=== PATIENT | male | born 1985 | race Caucasian/White ===

== ENCOUNTER 2019-05-04 20:06 | Emergency (ER) | payer OTHER ==
[2019-05-04] MEDS ORDERED: Ibuprofen 600 MG Tab PO ONE (20:13)
--- NOTE | 2019-05-04 20:18 | EDM.PDOC ---
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 male came to the ED after an equipment fell onto his right cheek. Pt was concerned hi right jaw is broken. He noticed a wound lesion at his right jaw as well. No LOC, no N/V/D no CP no SOB or any other acute med issues. BP 120 /82 RR 18 Pulse ox 100% on RA Temp 36.6 Pulse 66 Onset Date: 05/04/19 Onset Time: 02:12 Duration: Minutes: Location: Reports: Face Quality: Reports: Dull Severity: Mild Improves with: Reports: Rest Worsens with: Reports: Movement Context: Reports: Trauma (to tright jaw) Associated Symptoms: Reports: No Other Symptoms Right Cheek Pain Score (Numeric/FACES): 7 - Related Data Allergies Allergy/AdvReac Type Severity Reaction Status Date / Time shellfish derived Allergy Anaphylactic Verified 05/04/19 20:23 Shock ED ROS GENERAL - Review of Systems Review Of Systems: See Below Constitutional: Reports: No Symptoms HEENT: Reports: Other (right jaw pain) Respiratory: Reports: No Symptoms Cardiovascular: Reports: No Symptoms Endocrine: Reports: No Symptoms GI/Abdominal: Reports: No Symptoms : Reports: No Symptoms Musculoskeletal: Reports: No Symptoms Skin: Reports: Wound (right jaw) Neurological: Reports: No Symptoms Psychiatric: Reports: No Symptoms Hematologic/Lymphatic: Reports: No Symptoms Immunologic: Reports: No Symptoms ED EXAM, DIZZINESS - Physical Exam Exam: See Below Exam Limited By: No Limitations General Appearance: Alert, WD/WN, Mild Distress Eye Exam: Bilateral Eye: Normal Inspection Ears: Normal External Exam, Normal Canal Nose: Normal Inspection, Normal Mucosa, No Blood Throat/Mouth: Normal Inspection, Normal Lips, Normal Voice, No Airway Compromise , Other (no loose teeth) Head Exam: Atraumatic, Normocephalic Neck: Normal Inspection, Supple, Non-Tender, Full Range of Motion Respiratory/Chest: No Respiratory Distress, Lungs Clear, Normal Breath Sounds, No Accessory Muscle Use, Chest Non-Tender Cardiovascular: Normal Peripheral Pulses, Regular Rate, Rhythm, No Edema, No Gallop, No Murmur, No Rub GI/Abdominal: Normal Bowel Sounds, Soft, Non-Tender, No Organomegaly, No Abnormal Bruit, No Mass, Pelvis Stable (Male) Exam: Deferred Rectal (Males) Exam: Deferred Neurological: Alert, Normal Mood/Affect, Normal Dorsiflexion, CN II-XII Intact, Normal Gait, No Motor/Sensory Deficits, Oriented x 3 Back Exam: Normal Inspection, Full Range of Motion Extremities: Normal Inspection, Normal Range of Motion, Non-Tender, No Pedal Edema, Normal Capillary Refill Psychiatric: Normal Affect, Normal Mood Skin Exam: Warm, Dry, Normal Color, No Rash, Wound/Incision (abrasion right mid mandibula) Course - Vital Signs Text/Narrative:: 34 y.o.w. male came to the ED after an equipment fell onto his right cheek. Pt was concerned hi right jaw is broken. He noticed a wound lesion at his right jaw as well. No LOC, no N/V/D no CP no SOB or any other acute med issues. BP 120 /82 RR 18 Pulse ox 100% on RA Temp 36.6 Pulse 66 PE: WNWD W M withrigh jaw discomfort, no facial deformity, an abrasion right mid mandibula, minor Imaging: Facial Bones: NAD, Official report is pending Impression: Right jaw discomfort. Punctured wound right jaw Tx; TD immunization, Motrin, ICE Reexam: Improved Plan: D/C with instructions Last Recorded V/S: Last Vital Signs Temp 36.6 C 05/04/19 20:06 Pulse 68 05/04/19 21:35 Resp 18 05/04/19 21:35 BP 122/82 05/04/19 21:35 Pulse Ox 99 05/04/19 21:35 - Orders/Labs/Meds Orders: Active Orders 24 hr Category Date Time Status Vaccines to be Administered [RC] PER UNIT ROUTINE Care 05/04/19 21:42 Active Mandible Less 4V [CR] Stat Exams 05/04/19 20:15 Taken Meds: Medications Discontinued Medications Generic Name Dose Route Start Last Admin Trade Name Freq PRN Reason Stop Dose Admin Diphtheria/Tetanus/Acell Pertussis 0.5 ml 05/04/19 21:42 05/04/19 21:48 Adacel IM 05/04/19 21:43 0.5 ml .ONCE ONE Administration Ibuprofen 600 mg 05/04/19 20:13 05/04/19 20:23 Motrin PO 05/04/19 20:14 600 mg ONETIME ONE Administration Departure - Departure Time of Disposition: 21:41 Disposition: Home, Self-Care 01 Condition: Good Clinical Impression: Abrasion, face w/o infection - Discharge Information Instructions: [facility], Adult, VIS, Diphtheria, Tetanus, and Pertussis ( DTaP) - CDC (04/15/2007) Referrals: PCP,Unknown [Primary Care Provider] - Forms: ED Department Discharge Additional Instructions: Please take Motrin or pain, apply Neosporin to wound right jaw, please f/u, come back if your symptoms get worse acutely. - My Orders Last 24 Hours: My Active Orders 05/04/19 20:15 Mandible Less 4V [CR] Stat 05/04/19 21:42 Vaccines to be Administered [RC] PER UNIT ROUTINE - Assessment/Plan Last 24 Hours: My Active Orders 05/04/19 20:15 Mandible Less 4V [CR] Stat 05/04/19 21:42 Vaccines to be Administered [RC] PER UNIT ROUTINE
[2019-05-04] MEDS ORDERED: Diphtheria,Pertussis(Acell),Tetanus Vaccine 0.5 ML SDV IM ONE (21:42)
--- NOTE | 2019-05-06 09:13 | CR ---
INDICATION: Trauma - hit right side of jaw. MANDIBLE: Six images of the mandible were obtained and revealed no evidence of a fracture, dislocation, or other definite bone or joint abnormality of the mandible. Prevertebral space appeared to be normal. There is some mild hypertrophic change off the C5 and C7 vertebral bodies anteriorly. IMPRESSION: No acute fracture or dislocation identified. MTDD
== END 2019-05-04 21:50 | disposition home or self-care (01) ==
LOC: FB.ED 20:06
DX: S01.83XA Puncture wound without foreign body of other part of head, initial encounter (principal); Z91.013 Allergy to seafood; Z23 Encounter for immunization; W20.8XXA Other cause of strike by thrown, projected or falling object, initial encounter
CPT/HCPCS: 70100; 90471; 90715; 99283; A9270

== ENCOUNTER 2021-01-20 08:09 | Emergency (ER) | payer OTHER ==
--- NOTE | 2021-01-20 09:20 | EDM.PDOC ---
ED HPI GENERAL MEDICAL PROBLEM - General Chief Complaint: General Stated Complaint: CHEST PAIN DT HOCKEY INJURY Time Seen by Provider: 01/20/21 09:15 Source of Information: Reports: Patient History Limitations: Reports: No Limitations - History of Present Illness INITIAL COMMENTS - FREE TEXT/NARRATIVE: Patient developed right chest wall pain after a Hockey game on 01/16/21. He d enies specific injury and didn't notice pain during the game, but began to experience the pain just after the game finished. Pain is exacerbated with inspiration and movement. Symptoms are worsening. No improvement with Ibuprofen. No other complaints. 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 Pain Score (Numeric/FACES): 9 - Related Data Allergies Allergy/AdvReac Type Severity Reaction Status Date / Time shellfish derived Allergy Anaphylactic Verified 01/20/21 08:25 Shock Home Meds: Home Meds Acetaminophen/HYDROcodone [Liguori 325-5 MG] 1 - 2 tab PO Q6H PRN #20 tab 01/20/21 [Rx] Baclofen 10 mg PO TID PRN #30 tablet 01/20/21 [Rx] FLUoxetine HCl [Prozac] 20 mg PO DAILY 01/20/21 [History] Methylphenidate [Ritalin] 20 mg PO BID 01/20/21 [History] Past Medical History Gastrointestinal History: Reports: Other (See Below) Other Gastrointestinal History: hernia Psychiatric History: Reports: ADHD, Anxiety, Depression Social & Family History - Family History Family Medical History: No Pertinent Family History - Tobacco Use Tobacco Use Status *Q: Current Every Day Tobacco User Years of Tobacco use: 1 Packs/Tins Daily: 0.2 Tobacco Use Comment: states that he only smokes occasionaly. - Caffeine Use Caffeine Use: Reports: Coffee, Soda - Recreational Drug Use Recreational Drug Use: No Review of Systems - Review of Systems Review Of Systems: Comprehensive ROS is negative, except as noted in HPI. ED EXAM, GENERAL - Physical Exam Exam: See Below Exam Limited By: No Limitations General Appearance: Alert, WD/WN, No Apparent Distress Throat/Mouth: No Airway Compromise Head: Atraumatic, Normocephalic Neck: Full Range of Motion Respiratory/Chest: No Respiratory Distress, Lungs Clear, Normal Breath Sounds, Other (Tenderness to right anterior @6th intercostal space, no crepitus) Cardiovascular: Regular Rate, Rhythm, No Gallop, No Murmur, No Rub GI/Abdominal: Soft, Non-Tender, No Distention Back Exam: Full Range of Motion. No: Paraspinal Tenderness, Vertebral Tenderness Extremities: Normal Range of Motion Neurological: Alert, Normal Cognition Psychiatric: Normal Affect, Normal Mood Skin Exam: Warm, Dry, Intact Course - Vital Signs Last Recorded V/S: Last Vital Signs Temp 36.8 C 01/20/21 08:15 Pulse 73 01/20/21 08:15 Resp 17 01/20/21 08:15 BP 135/96 H 01/20/21 08:15 Pulse Ox 98 01/20/21 08:15 - Orders/Labs/Meds Orders: Active Orders 24 hr Category Date Time Status Ribs 2V w Chest Rt [CR] Stat Exams 01/20/21 08:30 Ordered - Radiology Interpretation Free Text/Narrative:: Right rib and CXR: No fracture, no pneumo or hemothorax. (ED provider int erpretation) Departure - Departure Time of Disposition: :21 Disposition: Home, Self-Care 01 Condition: Good Clinical Impression: Intercostal muscle strain Qualifiers: Encounter type: initial encounter Qualified Code(s): S29.011A - Strain of muscle and tendon of front wall of thorax, initial encounter - Discharge Information *PRESCRIPTION DRUG MONITORING PROGRAM REVIEWED*: Yes *COPY OF PRESCRIPTION DRUG MONITORING REPORT IN PATIENT SHAHEEN: No Prescriptions: Baclofen 10 mg PO TID PRN #30 tablet PRN Reason: Muscle Spasm Acetaminophen/HYDROcodone [Liguori 325-5 MG] 1 - 2 tab PO Q6H PRN #20 tab PRN Reason: Pain Instructions: Thoracic Strain, [id number] Forms: ED Department Discharge Additional Instructions: Fill the prescriptions for Liguori and Baclofen at [facility] in [place] and take as directed. You may also take Ibuprofen as needed, but do not take acetaminophen containing medications while taking Liguori. Rest, apply a heating pad. Follow up with your primary physician in 3-4 days if symptoms don't improve. Return to the ER if symptoms worsen. Sepsis Event Note (ED) - Evaluation Sepsis Screening Result: No Definite Risk - Focused Exam Vital Signs: Vital Signs Temp Pulse Resp BP Pulse Ox 01/20/21 08:15 36.8 C 73 17 135/96 H 98 - My Orders Last 24 Hours: My Active Orders 01/20/21 08:30 Ribs 2V w Chest Rt [CR] Stat - Assessment/Plan Last 24 Hours: My Active Orders 01/20/21 08:30 Ribs 2V w Chest Rt [CR] Stat
--- NOTE | 2021-01-21 11:10 | CR ---
INDICATION: Injury. RIGHT RIBS WITH CHEST: PA view of the chest with six images of the right ribs were obtained 01/20/21 - no comparisons. The heart, mediastinum and bony thorax were unremarkable on chest x-ray with no evidence of an active infiltrate, effusion, contusion or pneumothorax. No free air is noted under the hemidiaphragm leaves. Six images of the ribs revealed no displaced fracture site or other definite abnormality. If symptoms persist, if occult fracture site is suspected clinically, reexamination in 10-14 days may of further diagnostic benefit. MTDD
== END 2021-01-20 09:35 | disposition home or self-care (01) ==
LOC: FB.ED 08:09
DX: S29.011A Strain of muscle and tendon of front wall of thorax, initial encounter (principal); Z91.013 Allergy to seafood; Z72.0 Tobacco use; Z79.899 Other long term (current) drug therapy; X58.XXXA Exposure to other specified factors, initial encounter; Y93.65 Activity, lacrosse and field hockey
CPT/HCPCS: 71101-RT; 99283-25

== ENCOUNTER 2021-08-29 16:36 | Emergency (ER) | payer SELFPAY ==
--- NOTE | 2021-08-29 17:23 | EDM.PDOC ---
ED HPI GENERAL MEDICAL PROBLEM - General Stated Complaint: HEART ISSUES/CHEST PAIN Time Seen by Provider: 08/29/21 16:45 Source of Information: Reports: Patient History Limitations: Reports: No Limitations - History of Present Illness INITIAL COMMENTS - FREE TEXT/NARRATIVE: Patient presented to the ED because of chest pain which started at 1230 radiating to both arms with associated dyspnea perioral and peripheral numbness and tingling. Patient was hyperventilating when I was doing my H/P. Chest Pain Score (Numeric/FACES): 5 - Related Data Allergies Allergy/AdvReac Type Severity Reaction Status Date / Time shellfish derived Allergy Anaphylactic Verified 08/29/21 17:44 Shock Home Meds: Home Meds Amphetamine/Dextroamphetamine [Adderall] 40 mg PO DAILY 08/29/21 [History] FLUoxetine HCl [Prozac] 40 mg PO BEDTIME 08/29/21 [History] Past Medical History Gastrointestinal History: Reports: Other (See Below) Other Gastrointestinal History: hernia Psychiatric History: Reports: ADHD, Anxiety, Depression Social & Family History - Family History Family Medical History: No Pertinent Family History - Caffeine Use Caffeine Use: Reports: Coffee, Soda ED ROS GENERAL - Review of Systems Review Of Systems: See Below Constitutional: Reports: No Symptoms HEENT: Reports: No Symptoms Respiratory: Reports: No Symptoms Cardiovascular: Reports: Chest Pain Endocrine: Reports: No Symptoms GI/Abdominal: Reports: No Symptoms : Reports: No Symptoms Musculoskeletal: Reports: No Symptoms Skin: Reports: No Symptoms Neurological: Reports: No Symptoms Psychiatric: Reports: No Symptoms ED EXAM, GENERAL - Physical Exam Exam: See Below Exam Limited By: No Limitations General Appearance: Alert, No Apparent Distress Eye Exam: Bilateral Eye: PERRL Ears: Normal External Exam, Normal Canal Nose: Normal Inspection, Normal Mucosa, No Blood Throat/Mouth: Normal Inspection, Normal Lips, Normal Teeth Head: Atraumatic, Normocephalic Neck: Normal Inspection, Supple, Non-Tender, Full Range of Motion Respiratory/Chest: No Respiratory Distress, Lungs Clear, Normal Breath Sounds, No Accessory Muscle Use, Chest Non-Tender Cardiovascular: Normal Peripheral Pulses, Regular Rate, Rhythm, No Edema, No Gallop, No JVD, No Murmur, No Rub GI/Abdominal: Normal Bowel Sounds, Soft, Non-Tender, No Organomegaly, No Distention, No Abnormal Bruit, No Mass Back Exam: Normal Inspection, Full Range of Motion Extremities: Normal Inspection, Normal Range of Motion, Non-Tender, No Pedal Edema, Normal Capillary Refill Neurological: Alert, Oriented, CN II-XII Intact, Normal Cognition, Normal Gait, Normal Reflexes, No Motor/Sensory Deficits #1 Interpretation EKG Date: 08/29/21 Time: 16:46 Rhythm: NSR Rate (Beats/Min): 68 [place]: Normal P-Wave: Present QRS: Normal ST-T: Normal QT: Normal UT/PQ Interval: 165 Comparison: No Change EKG Interpretation Comments: NSR Course - Vital Signs Text/Narrative:: Lab/EKG result was reviewed and discussed with patient Last Recorded V/S: Last Vital Signs Temp 36.8 C 08/29/21 18:00 Pulse 71 08/29/21 18:00 Resp 15 08/29/21 18:00 BP 143/99 H 08/29/21 18:00 Pulse Ox 98 08/29/21 18:00 - Orders/Labs/Meds Orders: Active Orders 24 hr Category Date Time Status EKG 12 Lead [EK] Routine Ther 08/29/21 16:55 Ordered Labs: Laboratory Tests 08/29/21 08/29/21 08/29/21 Range/Units 17:07 17:07 17:07 WBC 5.4 (3.2-10.1) x10-3/uL RBC 4.98 (3.90-5.90) x10(6)uL Hgb 16.0 (12.9-17.7) g/dL Hct 45.9 (38.3-50.1) % MCV 92.1 (80.8-98.7) fL MCH 32.0 (27.0-33.3) pg MCHC 34.8 (28.7-35.3) g/dL RDW 13.0 (12.4-15.0) % Plt Count 216 (117-477) x10(3)uL MPV 7.6 (6.7-11.0) fL Neut % (Auto) 63.0 (40.3-71.8) % Lymph % (Auto) 24.2 (15.8-45.3) % [place] % (Auto) 8.8 (5.5-15.2) % Eos % (Auto) 2.7 (0.1-6.8) % Baso % (Auto) 1.3 (0.3-3.8) % Neut # (Auto) 3.4 (1.7-6.9) x10-3/uL Lymph # (Auto) 1.3 (0.5-4.5) x10-3/uL [place] # (Auto) 0.5 (0.0-1.2) x10-3/uL Eos # (Auto) 0.1 (0.0-0.6) x10-3/uL Baso # (Auto) 0.1 (0.0-0.3) x10-3/uL Sodium 141 (135-145) mmol/L Potassium 4.1 (3.5-5.3) mmol/L Chloride 104 (100-110) mmol/L Carbon Dioxide 29 (21-32) mmol/L BUN 13 (7-18) mg/dL Creatinine 1.1 (0.70-1.30) mg/dL Est Cr Clr Drug Dosing TNP Estimated GFR (MDRD) > 60 (>60) BUN/Creatinine Ratio 11.8 (9-20) Glucose 115 (80-116) mg/dL Calcium 8.9 (8.6-10.2) mg/dL Total Bilirubin 0.5 (0.1-1.3) mg/dL AST 24 (5-25) IU/L ALT 57 H (12-36) U/L Alkaline Phosphatase 75 (56-112) IU/L Troponin I 4.4 (4.0-60.3) pg/mL Total Protein 7.2 (6.0-8.0) g/dL Albumin 3.8 (3.5-5.2) g/dL Globulin 3.4 g/dL Albumin/Globulin Ratio 1.1 Departure - Departure Time of Disposition: 18:00 Disposition: Home, Self-Care 01 Condition: Good Clinical Impression: Atypical chest pain, Panic attack Instructions: Nonspecific Chest Pain, Adult, [id number] Referrals: PCP,None [Primary Care Provider] - Forms: ED Department Discharge Additional Instructions: Please read discharge instructions on atypical chest pain Take ibuprofen 800 mg with tylenol 1000 mg every 8 hours as needed for pain Follow up as needed Sepsis Event Note (ED) - Focused Exam Vital Signs: Vital Signs Temp Pulse Resp BP Pulse Ox 08/29/21 18:00 36.8 C 71 15 143/99 H 98 08/29/21 16:40 36.7 C 74 14 152/100 H 98 - My Orders Last 24 Hours: My Active Orders 08/29/21 16:55 EKG 12 Lead [EK] Routine - Assessment/Plan Last 24 Hours: My Active Orders 08/29/21 16:55 EKG 12 Lead [EK] Routine
== END 2021-08-29 18:12 | disposition home or self-care (01) ==
LOC: FB.ED 16:36
DX: R07.89 Other chest pain (principal); F41.0 Panic disorder [episodic paroxysmal anxiety]; Z91.013 Allergy to seafood
CPT/HCPCS: 36415; 80053; 84484; 85025; 93005; 99285-25

== ENCOUNTER 2022-07-19 19:14 | Emergency (ER) | payer OTHER ==
[2022-07-19] MEDS ORDERED: Lidocaine 2% 20 ML MDV INFILT ONE (19:15)
[2022-07-19] MEDS ORDERED: Cephalexin 500 MG Cap PO STA (19:40)
== END 2022-07-19 20:19 | disposition home or self-care (01) ==
LOC: FB.ED 19:14
DX: S61.213A Laceration without foreign body of left middle finger without damage to nail, initial encounter (principal); Z91.013 Allergy to seafood; W26.8XXA Contact with other sharp object(s), not elsewhere classified, initial encounter
CPT/HCPCS: 12001; 73140; 99283; A9270; 99281